=== PATIENT | female | born 1950 | race Caucasian/White ===

== ENCOUNTER 2019-01-13 10:30 | Emergency (ER) | payer MEDICARE, OTHER | END 2019-01-13 10:47 | LOC: JD.ED 10:30 | DX: R06.02 Shortness of breath (principal); Z53.21 Procedure and treatment not carried out due to patient leaving prior to being seen by health care provider ==

== ENCOUNTER 2021-02-27 07:14 | Day surgery (SDC) | payer MEDICARE, OTHER ==
[~2021-02-27 07:14] MED LIST: Lactated Ringers 1,000 ML IV SCH; Lidocaine 1% 4 ML ONE; Lidocaine 1%/Sod Bicarbonate in NS 8.4% 1 ML Syringe IDERM PRN; Propofol 200 MG/20 ML SDV ONE; Sodium Chloride 0.9% 10 ML Syringe FLUSH PRN; fentaNYL 100 MCG/2 ML SDV ONE
--- NOTE | 2021-02-27 07:21 | PCM.PREANE ---
Preanesthetic Assessment - Anesthesia/Transfusion/Family Hx Anesthesia History: Prior Anesthesia Without Reaction Family History of Anesthesia Reaction: No Transfusion History: No Prior Transfusion(s) Intubation History: Unknown - Review of Systems General: No Symptoms Pulmonary: Cough Cardiovascular: No Symptoms Gastrointestinal: No Symptoms Neurological: No Symptoms Other: Reports: None - Physical Assessment NPO Status Date: 02/27/21 NPO Status Time: 22:00 ASA Class: 3 Mental Status: Alert & Oriented x3 Airway Class: Mallampati = 1 Dentition: Reports: Dentures (upper/lower) Thyro-Mental Finger Breadths: 3 Mouth Opening Finger Breadths: 3 ROM/Head Extension: Full Lungs: Clear to Auscultation, Normal Respiratory Effort Cardiovascular: Regular Rate, Regular Rhythm - Allergies Allergies/Adverse Reactions: Allergies Allergy/AdvReac Type Severity Reaction Status Date / Time No Known Allergies Allergy Verified 02/13/21 09:33 - Anesthesia Plan Beta Cielo: Metoprolol Med Last Dose Date: 02/27/21 Med Last Dose Time: 05:30 - Acknowledgements Anesthesia Type Planned: MAC Pt an Appropriate Candidate for the Planned Anesthesia: Yes Alternatives and Risks of Anesthesia Discussed w Pt/Guardian: Yes Pt/Guardian Understands and Agrees with Anesthesia Plan: Yes PreAnesthesia Questionnaire HEENT History: Reports: Impaired Vision Cardiovascular History: Reports: CAD, High Cholesterol, Hypertension, Other (See Below) Other Cardiovascular History: SVT, bradycardia, coronary artery spasm, tricuspid valve insufficiency Respiratory History: Reports: Asthma, Bronchitis, Recurrent, Sleep Apnea, Other (See Below) Other Respiratory History: lung nodule Gastrointestinal History: Reports: Gastritis, GERD, Other (See Below) Other Gastrointestinal History: nausea Genitourinary History: Reports: Other (See Below) Other Genitourinary History: renal artery stenosis, protenuria, CKD III, hematuria ORIENTATION & MOBILITY SPECIALIST History: Reports: None Musculoskeletal History: Reports: Back Pain, Chronic, Fibromyalgia, Other (See Below) Other Musculoskeletal History: shoulder pain, muscle spasm Neurological History: Reports: Seizure, Other (See Below) Other Neuro History: radiculopathy, lumbar DDD, neuralgia Psychiatric History: Reports: Depression, Other (See Below) Other Psychiatric History: insomnia, chronic pain syndrome Endocrine/Metabolic History: Reports: None Hematologic History: Reports: None Immunologic History: Reports: Other (See Below) Other Immunologic History: MGUS Oncologic (Cancer) History: Reports: None - Past Surgical History HEENT Surgical History: Reports: Oral Surgery Respiratory Surgical History: Reports: None GI Surgical History: Reports: Colonoscopy, EGD, Hernia Repair/Other Female Surgical History: Reports: Hysterectomy Male Surgical History: Reports: None Endocrine Surgical History: Reports: None Neurological Surgical History: Reports: Spinal Fusion Musculoskeletal Surgical History: Reports: Other (See Below) Other Musculoskeletal Surgeries/Procedures:: right leg/ankle surgery, right arthroscopy, bilateral bunionectomy, bilateral carpal tunnel release, ulnar nerve surgery bilaterally Oncologic Surgical History: Reports: None Dermatological Surgical History: Reports: Other (See Below) - SUBSTANCE USE Tobacco Use Status *Q: Current Every Day Tobacco User Recreational Drug Use History: No Recreational Drug Type: Reports: Marijuana/Hashish (medical) - HOME MEDS Home Medications: Home Meds Cholecalciferol (Vitamin D3) [Vitamin D3] 5,000 unit PO DAILY 02/26/21 [History] DULoxetine HCl [Cymbalta] 60 mg PO DAILY 02/26/21 [History] Denosumab [Prolia] 1 dose SQ ASDIRECTED 02/26/21 [History] Gabapentin [Neurontin] 600 mg PO TID 02/26/21 [History] Ketorolac [Toradol] 15 mg IM DAILY PRN 02/26/21 [History] Losartan [Cozaar] 25 mg PO DAILY 02/26/21 [History] Metoprolol Succinate [Toprol Xl] 50 mg PO DAILY 02/26/21 [History] Nitroglycerin [Nitrostat] 0.4 mg SL ASDIRECTED PRN 02/26/21 [History] Pravastatin [Pravachol] 20 mg PO BEDTIME 02/26/21 [History] Promethazine [Phenergan] 25 mg PO Q6H PRN 02/26/21 [History] Spironolact/Hydrochlorothiazid [Aldactazide 25-25] 1 tab PO DAILY 02/26/21 [History] Ubidecarenone [Coq-10] 200 mg PO DAILY 02/26/21 [History] Umeclidinium Brm/Vilanterol Tr [Anoro Ellipta 62.5-25 MCG] 1 puff INH DAILY 02/26/21 [History] Vitamin B Complex [B Complex] 1 tab PO DAILY 02/26/21 [History] dilTIAZem HCL [Cardizem Cd] 180 mg PO DAILY 02/26/21 [History] hydrOXYzine HCL [hydrOXYzine] 10 mg PO Q6H PRN 02/26/21 [History] - CURRENT (IN HOUSE) MEDS Current Meds: Current Medications Lactated Ringer's (Ringers, Lactated) 1,000 mls @ 125 mls/hr IV ASDIRECTED MARTA Stop: 02/27/21 23:00 Lidocaine/Sodium Bicarbonate (Lidocaine 1%/Sod Bicarbonate In Ns 8.4% 1 Ml Syringe) 0.25 ml IDERM ONETIME PRN PRN Reason: Prior to IV Start Stop: 02/27/21 23:00 Sodium Chloride (Sodium Chloride 0.9% 10 Ml Syringe) 10 ml FLUSH ASDIRECTED PRN PRN Reason: Keep Vein Open Stop: 02/27/21 23:00 Discontinued Medications Fentanyl (Fentanyl 100 Mcg/2 Ml Sdv) Confirm Administered Dose 100 mcg .ROUTE .STK-MED ONE Stop: 02/27/21 07:06 Lidocaine HCl (Xylocaine-Mpf 1%) Confirm Administered Dose 4 mls @ as directed .ROUTE .STK-MED ONE Stop: 02/27/21 07:05 Propofol (Propofol 200 Mg/20 Ml Sdv) Confirm Administered Dose 200 mg .ROUTE .STK-MED ONE Stop: 02/27/21 07:05 Propofol (Propofol 200 Mg/20 Ml Sdv) Confirm Administered Dose 200 mg .ROUTE .STK-MED ONE Stop: 02/27/21 07:08
[2021-02-27] MEDS ORDERED: Midazolam 1 MG/ML 2 ML SDV ONE (07:35)
[2021-02-27] MEDS ORDERED: Propofol 200 MG/20 ML SDV ONE ×2 (08:57→09:21)
[2021-02-27] MEDS ORDERED: Lactated Ringers 1,000 ML ONE (09:04)
--- NOTE | 2021-02-27 09:58 | PCM48HPAN ---
Post Anesthesia Note - EVALUATION WITHIN 48HRS OF ANESTHETIC Vital Signs in Normal Range: Yes Patient Participated in Evaluation: Yes Respiratory Function Stable: Yes Airway Patent: Yes Cardiovascular Function Stable: Yes Hydration Status Stable: Yes Pain Control Satisfactory: Yes Nausea and Vomiting Control Satisfactory: Yes Mental Status Recovered: Yes Vital Signs: Last Vital Signs Temp 36.5 C 02/27/21 07:00 Pulse 75 02/27/21 07:00 Resp 20 02/27/21 07:00 BP 118/82 02/27/21 07:00 Pulse Ox 100 02/27/21 07:00
--- NOTE | 2021-02-27 10:02 | PCM.OPNOTE ---
- General Post-Op/Procedure Note Date of Surgery/Procedure: 02/27/21 Operative Procedure(s): EGD and colonscopy with hemorrhoid banding Findings: 1. Gastritis 2. Irregular GE junction 3. Duodenitis 4. Diverticulosis 5. colon polyps Pre Op Diagnosis: Nausea, bloating, Left lower abdominal pain, Rectal bleeding Post-Op Diagnosis: same Anesthesia Technique: MAC Primary Surgeon: Salma De Jesus Anesthesia Provider: Malka Alexandra Pathology: 1. Duodenal biopsies 2. Gastric antrum biopsies 3. Z-line biopsies 4. Cecal polyp x3 5. Hepatic flexure polyp 6. Ascending colon polyp 7. Transverse colon polyps x5 8. Descending colon polyp x3 9. Sigmoid colon polyp x2 10. Rectosigmoid polyp >1cm Fluid Replacement, Intraop: 1,100 EBL in mLs: 0 Complications: none apparent Condition: Good
--- NOTE | 2021-02-27 11:07 | PCM.PRNOTE ---
- Free Text/Narrative Note: Operative Report Date of Procedure: February 27, 2021 Pre Op Diagnosis: Nausea, bloating, Left lower abdominal pain, Rectal bleeding Post-Op Diagnosis: same Operative Procedures: 1. EGD with biopsy 2. Colonoscopy to the cecum with hemorrhoid banding Primary Surgeon: Salma De Jesus MD Anesthesia Provider: Malka Alexandra CRNA Anesthesia Technique: MAC IV Fluid Replacement, Intraop: 1100cc crystalloid Output, Urine Amount: 0cc EBL in mLs: 0cc Findings: 1. Gastritis 2. Irregular GE junction 3. Duodenitis 4. Diverticulosis 5. colon polyps 6. Internal hemorrhoids Specimens: 1. Duodenal biopsies 2. Gastric antrum biopsies 3. Z-line biopsies 4. Cecal polyp x3 5. Hepatic flexure polyp 6. Ascending colon polyp 7. Transverse colon polyps x5 8. Descending colon polyp x3 9. Sigmoid colon polyp x2 10. Rectosigmoid polyp >1cm Drain/Tubes: None Indication: The patient is a 70-year-old lady who presented to the clinic with LLQ abdominal pain and some rectal bleeding. The patient reported symptoms of intermittent dysphagia in addition to nausea and bloating, and this was evaluated preoperatively with an esophagram. The patient was consented for a diagnostic EGD with possible balloon dilation and colonoscopy with possible hemorrhoid banding. Risks of bleeding, and perforation were discussed, and the patient agreed to the risks and wished to proceed. Description of the procedure: The patient was taken back to the endoscopy suite, and placed in the left lateral decubitus position. A bite block was placed. The patient was sedated with MAC anesthesia. The Olympus video endoscope was inserted into the oropharynx and guided under direct vision into the esophagus, stomach, and duodenum. The duodenal bulb and first portion of the duodenum was significant for mucosal changes and friability consistent with duodenitis. This was biopsied with a cold biopsy forceps. The second portion of the duodenum was unremarkable. The gastric antrum was inspected and had erythema consistent with gastritis, and cold biopsy forceps were used to take tissue samples for H. pylori. The scope was withdrawn to the stomach and retroflexed. There was no increased fluid, food or secretions in the upper gastrointestinal tract. No erosions or ulcers were noted. The scope was withdrawn to the esophagus. Irregular Z-line changes were noted and biopsied with a cold biopsy forceps in four quadrants. The endoscope was then withdrawn. Next, anorectal examination was performed. No lesions, masses or hemorrhoids wer e noted externally or on palpation. She did have anal skin tags present consistent with a history of hemorrhoids. The scope was placed into the rectum and advanced to cecum. Upon reaching the cecum, and the patients cecum was entered. There was moderate tortuosity of the colon requiring some external abdominal pressure to reach the cecum. The ileocecal valve was well visualized and the appendiceal orifice identified. At this point, the scope was slowly withdrawn, paying attention to the mucosa. The patient had good bowel prep, 90-95% of the mucosa was visible. Three cecal polyps were noted measuring 3-7mm, the smallest was removed with a jumbo cold biopsy forceps and the larger two removed with a hot snare. An 8mm semi-sessile polyp was removed in piecemeal fashion from the hepatic flexure using a hot snare. There were 5 polyps in the transverse colon that were pedunculated and semi-sessile measuring 3-7mm. The 3mm polyp was removed with a jumbo cold biopsy forceps. One 6mm polyp of the above was removed with a cold snare and jumbo cold biopsy forceps. The remaining 3 polyps were removed with a hot snare. In the descending colon, three polyps measuring 4-5mm and semi-pedunculated, were removed with a hot snare. In the sigmoid colon, 2 flat 2-3mm polyps were removed with a jumbo cold biopsy forceps. A 12mm pedunculated polyp was found in the rectosigmoid colon and removed with a hot snare. An additional neighboring polyp was seen, but not retrieved due to the large number already resected. In the rectum, scope was retroflexed and some hemorrhoidal tissue was noted. The scope was placed back in the lumen and excess air was aspirated. The scope was removed. The anoscope was inserted and 4 hemorrhoid bands placed on her internal hemorrhoids. The anoscope was then removed. The patient tolerated the procedure very well. Complications: None apparent Condition: The patient was transported to PACU in stable condition. Salma De Jesus MD General Surgery
[2021-02-27 11:09] VITALS: BP 130/56; PULSE 50
== END 2021-02-27 10:27 | disposition home or self-care (01) ==
LOC: JD.SDS 07:14
PROVIDERS: ATTEND Surgery
DX: D12.0 Benign neoplasm of cecum (principal); D12.2 Benign neoplasm of ascending colon; D12.3 Benign neoplasm of transverse colon; D12.4 Benign neoplasm of descending colon; D12.7 Benign neoplasm of rectosigmoid junction; K29.80 Duodenitis without bleeding; K31.89 Other diseases of stomach and duodenum; K22.8 Other specified diseases of esophagus; K57.30 Diverticulosis of large intestine without perforation or abscess without bleeding; K64.8 Other hemorrhoids; I25.10 Atherosclerotic heart disease of native coronary artery without angina pectoris; E78.00 Pure hypercholesterolemia, unspecified; I12.9 Hypertensive chronic kidney disease with stage 1 through stage 4 chronic kidney disease, or unspecified chronic kidney disease; J45.909 Unspecified asthma, uncomplicated; G47.30 Sleep apnea, unspecified; N18.30 Chronic kidney disease, stage 3 unspecified; F17.210 Nicotine dependence, cigarettes, uncomplicated; Z88.6 Allergy status to analgesic agent; Z79.899 Other long term (current) drug therapy; Z98.890 Other specified postprocedural states
CPT/HCPCS: 43239; 45380; 45385; 46221; J2250; J2704; J3010; J7120; 00813; 88305

== ENCOUNTER 2022-05-27 07:11 | Day surgery (SDC) | payer MEDICARE, OTHER ==
[~2022-05-27 07:11] MED LIST changes: -Lidocaine 1% 4 ML ONE; +Midazolam 1 MG/ML 2 ML SDV ONE; +Sodium Chloride 0.9% 10 ML Syringe FLUSH SCH
[2022-05-27] MEDS ORDERED: Lidocaine 1% 4 ML ONE (08:08)
[2022-05-27] MEDS ORDERED: Bupivacaine 0.5%/EPINEPHrine 1:200,000 50 ML MDV ONE (08:16)
[2022-05-27] MEDS ORDERED: Albuterol 0.083% 2.5 MG/3 ML Neb Soln NEB ONE (08:30)
[2022-05-27 11:36] VITALS: BP 100/58; PULSE 65
== END 2022-05-27 09:53 | disposition home or self-care (01) ==
LOC: JD.SDS 07:11
PROVIDERS: ATTEND Surgery
DX: Z12.11 Encounter for screening for malignant neoplasm of colon (principal); D12.3 Benign neoplasm of transverse colon; D12.4 Benign neoplasm of descending colon; K64.4 Residual hemorrhoidal skin tags; K57.30 Diverticulosis of large intestine without perforation or abscess without bleeding; L57.0 Actinic keratosis; L82.1 Other seborrheic keratosis; F40.243 Fear of flying; M19.90 Unspecified osteoarthritis, unspecified site; I10 Essential (primary) hypertension; N39.0 Urinary tract infection, site not specified; B96.89 Other specified bacterial agents as the cause of diseases classified elsewhere; J44.1 Chronic obstructive pulmonary disease with (acute) exacerbation; I25.10 Atherosclerotic heart disease of native coronary artery without angina pectoris; F32.A Depression, unspecified; E78.00 Pure hypercholesterolemia, unspecified; G47.00 Insomnia, unspecified; G47.33 Obstructive sleep apnea (adult) (pediatric); F17.210 Nicotine dependence, cigarettes, uncomplicated; M81.0 Age-related osteoporosis without current pathological fracture; Z80.0 Family history of malignant neoplasm of digestive organs; Z79.1 Long term (current) use of non-steroidal anti-inflammatories (NSAID); Z79.51 Long term (current) use of inhaled steroids; Z79.82 Long term (current) use of aspirin; Z79.899 Other long term (current) drug therapy; Z79.84 Long term (current) use of oral hypoglycemic drugs; Z90.710 Acquired absence of both cervix and uterus; Z98.890 Other specified postprocedural states
CPT/HCPCS: 11403; 45380; 45385; 88305; J2250; J2704; J3010; J3490; J7120; 00812; 99100

== ENCOUNTER 2023-08-13 11:28 | Day surgery (SDC) | payer MEDICARE, OTHER ==
[~2023-08-13 11:28] MED LIST changes: -Lidocaine 1%/Sod Bicarbonate in NS 8.4% 1 ML Syringe IDERM PRN; -Midazolam 1 MG/ML 2 ML SDV ONE; -Propofol 200 MG/20 ML SDV ONE; -fentaNYL 100 MCG/2 ML SDV ONE
[2023-08-13] MEDS ORDERED: Propofol 200 MG/20 ML SDV ONE (12:43)
[2023-08-13] MEDS ORDERED: Lidocaine 1% 4 ML ONE (12:43)
[2023-08-13] MEDS ORDERED: fentaNYL 100 MCG/2 ML SDV ONE (12:43)
[2023-08-13 16:31] VITALS: BP 110/75; PULSE 72
== END 2023-08-13 13:55 | disposition home or self-care (01) ==
LOC: JD.SDS 11:28
PROVIDERS: ATTEND Specialist
DX: R13.10 Dysphagia, unspecified (principal); K44.9 Diaphragmatic hernia without obstruction or gangrene; K31.7 Polyp of stomach and duodenum; F41.9 Anxiety disorder, unspecified; J44.9 Chronic obstructive pulmonary disease, unspecified; I25.10 Atherosclerotic heart disease of native coronary artery without angina pectoris; F32.A Depression, unspecified; K21.9 Gastro-esophageal reflux disease without esophagitis; E78.00 Pure hypercholesterolemia, unspecified; G47.00 Insomnia, unspecified; I12.9 Hypertensive chronic kidney disease with stage 1 through stage 4 chronic kidney disease, or unspecified chronic kidney disease; N18.30 Chronic kidney disease, stage 3 unspecified; G47.33 Obstructive sleep apnea (adult) (pediatric); G25.81 Restless legs syndrome; M79.7 Fibromyalgia; M54.9 Dorsalgia, unspecified; G89.29 Other chronic pain; F17.210 Nicotine dependence, cigarettes, uncomplicated; Z79.82 Long term (current) use of aspirin; Z79.899 Other long term (current) drug therapy
CPT/HCPCS: 43239; J2704; J3010; J7120; 00731; 88305; 99100; J3490